=== PATIENT | male | born 1940 | race Caucasian/White ===

== ENCOUNTER 2022-11-24 09:25 | Outpatient (CLI) | payer MEDICARE, OTHER, SELFPAY | END 2022-11-24 09:26 | disposition home or self-care (01) | LOC: AMB 11-28 14:31 | PROVIDERS: PCP Family Medicine; Visit Provider Emergency Medicine | DX: R07.89 Other chest pain (principal) | CPT/HCPCS: A0425; A0427 ==

== ENCOUNTER 2022-11-24 10:02 | Emergency (ER) | payer MEDICARE, OTHER, SELFPAY ==
[2022-11-24] VITALS (42 sets, daily range): BP systolic 127–170; BP diastolic 81–87; PULSE 69–108; RESP 18–30; TEMP 35.5; O2SAT 90–99; BMI 35.4
--- NOTE | 2022-11-24 10:31 | CRLHL7_ITS ---
For Patients: As a result of the Century Cures Act, medical imaging exams and procedure reports are released immediately into your electronic medical record. You may view this report before your referring provider. If you have questions, please contact your health care provider. INDICATION: Shortness of breath. TECHNIQUE: Chest 1 view. COMPARISON: Chest radiograph 12/04/2018. FINDINGS: No focal consolidation, pleural effusion, or pneumothorax. Stable cardiomegaly. Pulmonary vasculature is within normal limits. The bones are unremarkable. IMPRESSION: 1. No acute cardiopulmonary findings. 2. Stable cardiomegaly. Dictated by Priscilla Major MD @ 11/24/2022 12:22:20 PM (Electronically Signed)
[2022-11-24 10:54] LABS: HCO3 VBG 20 mmol/L (21-28); Lactate Sepsis w/Reflex* 2.9 mmol/L (0.5-1.9); PCO2 VBG 30 mmHG (40-50); PO2 VBG 57.6 mmHG (25-47); pH VBG 7.417 (7.32-7.43)
--- NOTE | 2022-11-24 11:02 | ED_ITS ---
HPI - General Adult General Date Seen: 11/24/22 Chief complaint: Shortness of Breath/Dyspnea Stated complaint: shortness of breath Time Seen by Provider: 11/24/22 10:31 Source: patient Mode of arrival: EMS Limitations: no limitations History of Present Illness HPI narrative: Patient is an 82-year-old male who lives independently, he says he has had worsening shortness breath since last Thursday, presents to the ER on Thursday by EMS. He said he had called a friend to take him in but that friend felt he probably should come by ambulance which retrospectively he thinks was a good idea. He notes he became pretty severely short of breath today, not able to walk more than about 10 ft before he thought he might collapse. He denies chest pain, he has not had fevers, he says every once in a while he gets a little bit of a cough. He has not had any vomiting, diarrhea, black or bloody stools. He has not had abdominal pain. He has not had palpitations or syncope. He is short of breath all the time although it is worse with exertion. He denies any history of asthma, COPD, CHF. He does have water pill that he takes every couple weeks or so, he seems to decided take that based on leg swelling, but feels that his legs are really quite good right now. He does not smoke. He is not chronically on oxygen. He has high blood pressure, but otherwise describes himself as fairly healthy. He is overweight. O2 sats were reportedly 88% on room air. Related Data Home Medications Medication Instructions Recorded Confirmed lisinopril 20 mg tablet 20 mg PO BID 11/24/22 11/24/22 Allergies Allergy/AdvReac Type Severity Reaction Status Date / Time No Known Drug Allergies Allergy Verified 11/24/22 12:24 Review of Systems Status of ROS: Reports: 10 or more systems reviewed and unremarkable except as noted in History and below PFSH PFS Social History How often do you have a drink containing alcohol: 2-3 times a week How many standard drinks containing alcohol do you have on a typical day: 1 or 2 How often do you have six or more drinks on one occasion: Never AUDIT-C Alcohol total score: 3 Non-prescribed substance use: denies use Exam Narrative: Exam Narrative: Vital signs as noted above. In general, an alert, overweight male, increased work of breathing on O2 by nasal cannula. Head: Normocephalic, atraumatic. Eyes: Pupils are equal reactive. Extraocular movements are full. Conjunctivae are normal. ENT: Mucous membranes are moist. Neck: Supple without lymphadenopathy. Heart: Tachycardic and regular without significant murmur. Lungs: Lungs overall clear. Work of breathing is increased, tachypnea. Abdomen: Abdomen is obese. Skin on his abdomen is slightly mottled in appearance. Extremities: Extremities appear well perfused. Pulses are intact. No significant lower extremity edema. Neurologic: Patient is alert and oriented to person and place. Speech is fluent. Face is symmetric. Moves all extremities equally. Affect: Normal. Skin: Warm and dry. Aside from the abdominal skin which appears slightly mottled everything else looks well perfused. Const: Vital Signs, click to edit/add: Vital Signs - 24 hr 11/24/22 10:25 11/24/22 10:31 11/24/22 10:38 Temperature 96 F L Pulse Rate Pulse Rate [Pulse Oximeter] 106 H Respiratory Rate 30 H Blood Pressure Blood Pressure [Le ft Upper Arm] 127/83 Pulse Oximetry 92 92 90 Oxygen Delivery Me thod Nasal Cannula Nasal Cannula Oxygen Flow Rate 4 6 11/24/22 10:50 11/24/22 10:51 11/24/22 11:00 Temperature Pulse Rate 96 102 H Pulse Rate [Pulse Oximeter] Respiratory Rate Blood Pressure Blood Pressure [Le ft Upper Arm] Pulse Oximetry 90 90 94 Oxygen Delivery Me thod OxyMask Oxygen Flow Rate 6 11/24/22 11:15 11/24/22 11:30 11/24/22 11:45 Temperature Pulse Rate 101 H 102 H 103 H Pulse Rate [Pulse Oximeter] Respiratory Rate 22 Blood Pressure Blood Pressure [Le ft Upper Arm] Pulse Oximetry 90 92 91 Oxygen Delivery Me thod Oxygen Flow Rate 11/24/22 12:00 11/24/22 12:15 11/24/22 12:35 Temperature Pulse Rate 99 95 108 H Pulse Rate [Pulse Oximeter] Respiratory Rate Blood Pressure Blood Pressure [Le ft Upper Arm] Pulse Oximetry 90 90 93 Oxygen Delivery Me thod Oxygen Flow Rate 11/24/22 12:41 11/24/22 12:43 11/24/22 12:45 Temperature Pulse Rate 97 96 Pulse Rate [Pulse Oximeter] Respiratory Rate Blood Pressure 130/81 Blood Pressure [Le ft Upper Arm] 130/81 Pulse Oximetry 93 93 Oxygen Delivery Me thod Oxygen Flow Rate 11/24/22 13:00 Temperature Pulse Rate 96 Pulse Rate [Pulse Oximeter] Respiratory Rate Blood Pressure Blood Pressure [Le ft Upper Arm] Pulse Oximetry 92 Oxygen Delivery Me thod Oxygen Flow Rate Documenting provider has reviewed patient's vital signs: yes Course Course ED Course: Patient was on 4 L by nasal cannula when I saw him, was switched OxyMask, will see how he does on that. He is oxygenating reasonably well, 92-94% on that, may consider high-flow or even BiPAP if work of breathing does not improve on the OxyMask. Labs including COVID, chest x-ray, D-dimer etcetera are pending. EKG showed a sinus tachycardia with a ventricular rate of 106. He has a right bundle-branch block, morphology of the inferolateral leads is somewhat atypical suggesting possible ST depression, troponin is pending. Initial troponin was 0.18. EKG was repeated, looked the same. A 2nd troponin was stable 0.2. In the meantime, other labs came back showing a mildly elevated white count of 11.8, hemoglobin is 16. Venous gas showed a pH of 7.4, pCO2 30, PO2 of 57, bicarb of 20. Metabolic panel notable for a CO2 of 19, creatinine of 2.1, baseline unknown, otherwise fairly unremarkable. His lactate was elevated at 2.9. LFTs notable for an AST of 57. CRP mildly elevated at 2.[place] [address], but notably I did not hear any crackles in his lungs. Portable chest x-ray by my review did not show any significant findings including no evidence of pulmonary edema. Final radiology read was likewise negative. In the meantime, his D-dimer returned at over 11. I did attempt to look at his heart with echo, images were difficult to obtain, to a degree that I would not feel comfortable treating based on them. I sent him for CT of the chest, I reviewed those images immediately after his CT and noted significant burden of bilateral PE. No true saddle embolus. I spoke with Dr. Mina Brandt who was on-call as blintze roller at [facility]. On reviewing the images, with patient having elevated troponins, evidence of right heart strain on CT and significant burden of clot, he did recommend half does lytics, and as a result we are planning to transfer the patient to the ICU at [facility]. They do not have a bed available at this time, but should by this evening. In the meantime, after review of risk factors, patient was given 10 mg IV push Alteplase followed by 40 mg over the next 2 hours. Per protocol, we will then follow his PTT hourly and when it falls below 75 will initiate heparin drip per weight based protocol. I have discussed all this with the patient, he is comfortable with the plan. He did do well on OxyMask, did not need any upgraded respiratory management. He has been hemodynamically stable and without additional complaints. COVID was negative. Final radiology report is as follows:FINDINGS: Bilateral pulmonary emboli are present within all lobes. The clot burden appears more prominent on the right including clot within the main right PA. Cardiomegaly is present. The RV/LV ratio is greater than 1. Reflux of contrast into the IVC noted. Few scattered subcentimeter mediastinal lymph nodes are noted. Calcified nodule in the right lung apex is present. IMPRESSION: Extensive bilateral pulmonary emboli with right heart strain. In addition, patient had bilateral lower extremity Dopplers. These have not yet been read by Radiology but per tech report, DVT is noted in the left proximal femoral vein which appeared somewhat unstable. Vital Signs Vital signs: Initial Vital Signs Temperature 96 F L 11/24/22 10:25 Temperature Source Temporal Artery Scan 11/24/22 10:25 Pulse Rate 106 H 11/24/22 10:25 Respiratory Rate 30 H 11/24/22 10:25 Blood Pressure 127/83 11/24/22 10:25 Blood Pressure Mean 97 11/24/22 10:25 Pulse Oximetry 92 11/24/22 10:25 Oxygen Delivery Method Nasal Cannula 11/24/22 10:25 Oxygen Flow Rate 4 11/24/22 10:25 Vital Signs Temperature 96 F L 11/24/22 10:25 Pulse Rate 106 H 11/24/22 10:25 Respiratory Rate 30 H 11/24/22 10:25 Blood Pressure 127/83 11/24/22 10:25 Pulse Oximetry 92 11/24/22 10:25 Oxygen Delivery Method Nasal Cannula 11/24/22 10:25 Oxygen Flow Rate 4 11/24/22 10:25 Temperature 96 F L 11/24/22 10:25 Pulse Rate 96 11/24/22 13:00 Respiratory Rate 22 11/24/22 11:15 Blood Pressure 130/81 11/24/22 12:43 Pulse Oximetry 92 11/24/22 13:00 Oxygen Delivery Method OxyMask 11/24/22 10:51 Oxygen Flow Rate 6 11/24/22 10:51 Medical Decision Making Lab Data Labs: Lab Results 11/24/22 11/24/22 11/24/22 Range/Units 10:32 10:47 12:16 WBC 11.78 H (4.50-11.00) K/uL RBC 5.12 (4.30-5.90) m/uL Hgb 16.0 (13.5-17.5) gm/dL Hct 48.7 (37.0-53.0) % MCV 95 (80-100) fL MCH 31 (26-34) pg MCHC 33 (32-36) gm/dL RDW Coeff of Yassine 14.2 (11.5-15.5) % Plt Count 267 (140-440) K/uL Neut % (Auto) 78.7 H (42.0-72.0) % Lymph % (Auto) 13.8 L (20-44) % [place] % (Auto) 6.3 (0.0-11.0) % Eos % (Auto) 0.8 (0.0-7.0) % Baso % (Auto) 0.2 (0.0-3.0) % Neut # (Auto) 9.30 H (1.7-7.0) K/uL Lymph # (Auto) 1.60 (0.90-2.90) K/uL [place] # (Auto) 0.70 (0.00-0.90) K/UL Eos # (Auto) 0.10 (0.00-0.50) K/uL Baso # (Auto) 0.00 (0.00-0.30) K/uL Abs Immat Gran (auto) 0.00 (0.00-0.30) K/uL Imm/Tot Granulo (auto) 0.2 % INR 1.16 H (0.91-1.10) APTT 31 (23-33) Seconds D-Dimer Quant (PE/DVT) 11.57 H (0.00-0.50) ug/ml VBG pH 7.417 (7.32-7.43) VBG pCO2 30 L (40-50) mmHG VBG pO2 57.6 H (25-47) mmHG VBG HCO3 20 L (21-28) mmol/L Sodium 139 (135-149) mmol/L Potassium 3.5 L (3.6-5.1) mmol/L Chloride 106 (96-114) mmol/L Carbon Dioxide 19 L (20-32) mmol/L Anion Gap 14 (7-15) mEq/L BUN 32 H (7-30) mg/dL Creatinine 2.1 H (0.5-1.5) mg/dL Estimated Creat Clear 27.59 Estimated GFR 31 ml/min Glucose 188 H (60-115) mg/dL Lactate 2.9 H (0.5-1.9) mmol/L Calcium 9.3 (8.4-10.6) mg/dL Total Bilirubin 1.3 (0.1-1.5) mg/dL Direct Bilirubin 0.3 (0.0-0.5) mg/dL AST 57 H (12-35) U/L ALT 50 (4-50) U/L Alkaline Phosphatase 137 (40-150) U/L C-Reactive Protein 2.6 H (0.5-1.0) mg/dL NT-Pro-B Natriuret Pep 04384 pg/mL Total Protein 7.4 (6.0-8.3) g/dL Albumin 3.9 (3.3-5.0) g/dL TSH 4.040 (0.270-4.200) uIU/mL SARS-CoV-2 (PCR) Negative SARS-CoV-2 (Negative) Influenza Type A (PCR) Negative PCR FLU A (Negative) Influenza Type B (PCR) Negative PCR FLU B (Negative) RSV (PCR) Negative PCR RSV (Negative) POC Troponin I 0.18 H 0.20 H (0.01-0.04) ng/ml Discharge Plan Discharge Clinical Impression: Acute deep vein thrombosis (DVT) of femoral vein of left lower extremity, Bilateral pulmonary embolism Patient Disposition: Xfer Other Condition: Stable Prescriptions: No Action lisinopril 20 mg tablet 20 mg PO BID Stand Alone Forms: MyHealth Info Instructions
[2022-11-24 11:10] LABS: Basophils Percent Auto 0.2 % (0.0-3.0); Eosinophils Percent Auto 0.8 % (0.0-7.0); Hematocrit 48.7 % (37.0-53.0); Immature Granulocytes Pct Auto 0.2 %; Lymphocytes Percent Auto 13.8 % (20-44); Mean Corpuscular HGB Conc 33 gm/dL (32-36); Mean Corpuscular Hemoglobin 31 pg (26-34); Mean Corpuscular Volume 95 fL (80-100); Monocytes Percent Auto 6.3 % (0.0-11.0); Neutrophils Percent Auto 78.7 % (42.0-72.0); Platelet Count* 267 K/uL (140-440); RDW Coefficient of Variation % 14.2 % (11.5-15.5); Red Blood Count 5.12 m/uL (4.30-5.90); White Blood Count* 11.78 K/uL (4.50-11.00)
[2022-11-24 11:14] LABS: Troponin, Point-of-Care* 0.18 ng/ml (0.01-0.04)
[2022-11-24 11:19] LABS: Slide Review Reflex No
--- NOTE | 2022-11-24 11:30 | RESP.RT ---
Patient on 3.5L Oxymask When laying flat his SATs are 90% and when he is sitting up SATs improved to 94%. Patient has a strong nonproductive cough. Chest xray shows a little pulmonary edema.
[2022-11-24 11:32] LABS: D Dimer Quantitative* 11.57 ug/ml (0.00-0.50)
[2022-11-24 11:33] LABS: PCR FLU A Negative PCR FLU A (Negative); PCR FLU B Negative PCR FLU B (Negative); PCR RSV Negative PCR RSV (Negative)
[2022-11-24 11:45] LABS: SARS PCR* Negative SARS-CoV-2 (Negative)
[2022-11-24 11:55] LABS: Albumin* 3.9 g/dL (3.3-5.0); Chloride* 106 mmol/L (96-114); Sodium* 139 mmol/L (135-149)
[2022-11-24 11:56] LABS: Potassium* 3.5 mmol/L (3.6-5.1)
[2022-11-24 11:58] LABS: Creatinine* 2.1 mg/dL (0.5-1.5); Est. Creatinine Clearance* 27.59; Estimated Glomerular Filt Rate 31 ml/min
[2022-11-24 11:59] LABS: Alanine Aminotransferase* 50 U/L (4-50); Alkaline Phosphatase* 137 U/L (40-150); Aspartate Amino Transferase* 57 U/L (12-35); Bilirubin Direct* 0.3 mg/dL (0.0-0.5); Bilirubin Total* 1.3 mg/dL (0.1-1.5); Blood Urea Nitrogen* 32 mg/dL (7-30); Calcium* 9.3 mg/dL (8.4-10.6); Carbon Dioxide* 19 mmol/L (20-32); Glucose* 188 mg/dL (60-115); Total Protein* 7.4 g/dL (6.0-8.3)
[2022-11-24 12:01] LABS: C Reactive Protein* 2.6 mg/dL (0.5-1.0)
[2022-11-24 12:02] LABS: Anion Gap 14 mEq/L (7-15)
[2022-11-24 12:11] LABS: NT Pro B Type NatriureticPept* 17900 pg/mL
--- NOTE | 2022-11-24 12:14 | CRLHL7_ITS ---
For Patients: As a result of the Century Cures Act, medical imaging exams and procedure reports are released immediately into your electronic medical record. You may view this report before your referring provider. If you have questions, please contact your health care provider. INDICATION: SOB, ELEVATED D-DIMER COMPARISON: none TECHNIQUE: CT volumetric acquisition was performed of the thorax during intravenous infusion of 95 cc Isovue 370 nonionic intravenous contrast. Please note that all CT scans at this facility use dose modulation, iterative reconstruction, and/or weight-based dosing when appropriate to reduce radiation dose to as low as reasonably achievable. FINDINGS: Bilateral pulmonary emboli are present within all lobes. The clot burden appears more prominent on the right including clot within the main right PA. Cardiomegaly is present. The RV/LV ratio is greater than 1. Reflux of contrast into the IVC noted. Few scattered subcentimeter mediastinal lymph nodes are noted. Calcified nodule in the right lung apex is present. IMPRESSION: Extensive bilateral pulmonary emboli with right heart strain. Called to Dr. Jarvis at 1:00 pm 11.24.22. Please note that all CT scans at this facility use dose modulation, iterative reconstruction, and/or weight-based dosing when appropriate to reduce radiation dose to as low as reasonably achievable. Dictated by Sumit Perry MD @ 11/24/2022 1:00:15 PM (Electronically Signed)
--- NOTE | 2022-11-24 12:44 | CRLHL7_ITS ---
For Patients: As a result of the Cures Act, medical imaging exams and procedure reports are released immediately into your electronic medical record. You may view this report before your referring provider. If you have questions, please contact your health care provider. INDICATION: Positive PE, shortness of breath. COMPARISON: None. TECHNIQUE: A compression venous ultrasound exam was performed of both lower extremities using de la vega scale imaging, color Doppler and spectral Doppler analysis. FINDINGS: Right: Sonographic imaging of the right lower extremity demonstrates normal compressibility and color Doppler venous blood flow within the common femoral, femoral, deep femoral, and proximal greater saphenous veins. At a lower level the popliteal, peroneal, and posterior tibial veins also show normal compressibility and color Doppler venous blood flow. Left: Sonographic imaging of the left lower extremity demonstrates normal compressibility and color Doppler venous blood flow within the common femoral, deep femoral, and proximal greater saphenous veins. At a lower level the popliteal, peroneal, and posterior tibial veins also show normal compressibility and color Doppler venous blood flow. There is short-segment incompressible thrombus in the proximal left femoral vein. IMPRESSION: 1. Positive for acute DVT in the proximal left femoral vein. 2. Negative for acute DVT in the right lower extremity. 3. Findings discussed with Quintin Escobar at 5:26 p.m. on 11/24/2022. Dictated by Priscilla Major MD @ 11/24/2022 5:24:17 PM (Electronically Signed)
[2022-11-24 13:07] LABS: INR 1.16 (0.91-1.10); Prothrombin Time 15.5 Seconds
[2022-11-24 13:08] LABS: Partial Thromboplastin Time* 31 Seconds (23-33)
--- NOTE | 2022-11-24 15:35 | ED.NURSE ---
RN to RN report given. Patient will transfer to [place] [id number]. Unit phone [phone]
[2022-11-24 16:33] LABS: Partial Thromboplastin Time* 51 Seconds (23-33)
[2022-11-24] MEDS: HEPARIN 25,000 UNIT/500 ML BAG 30 UNIT IV (17:13)
[2022-11-24 17:29] LABS: INR 1.42 (0.91-1.10); Prothrombin Time 18.1 Seconds
--- NOTE | 2022-11-24 19:22 | PC.NURSE ---
Dr Escobar to room for EMS concern of BP trending up on their monitor, 174 systolic, per Dr Escobar ok to transport at this time
--- NOTE | 2022-11-24 19:33 | PC.NURSE ---
pt left with EMS en route to [place], second IV placed right hand
== END 2022-11-24 19:55 | disposition other institution (70) ==
PROVIDERS: Emergency Provider Emergency Medicine; PCP Family Medicine
DX: I26.99 Other pulmonary embolism without acute cor pulmonale (principal); I82.412 Acute embolism and thrombosis of left femoral vein
CPT/HCPCS: 36415; 71045; 71275; 80048; 80076; 82803; 83605; 83880; 84443; 84484; 85025; 85379; 85610; 85730; 86140; 87631; 93005; 93970; 94761; 99285; J1644; J2997; Q9967

== ENCOUNTER 2022-11-24 19:14 | Outpatient (CLI) | payer MEDICARE, OTHER, SELFPAY | END 2022-11-24 19:15 | disposition home or self-care (01) | LOC: AMB 11-29 13:41 | PROVIDERS: PCP Family Medicine; Visit Provider Emergency Medicine Emergency Medical Services | DX: I82.411 Acute embolism and thrombosis of right femoral vein (principal); I26.99 Other pulmonary embolism without acute cor pulmonale | CPT/HCPCS: A0425; A0434 ==